=== PATIENT | male | born 1965 | race Caucasian/White ===

== ENCOUNTER 2022-10-08 16:08 | Emergency (ER) | payer SELFPAY ==
[~2022-10-08] VITALS: Ht 180.3 cm; Wt 82.6 kg
[2022-10-08 16:15] VITALS: BP 145/94
--- NOTE | 2022-10-08 16:24 | NUR ---
BLOOD GLUCOSE 196
--- NOTE | 2022-10-08 17:55 | NUR ---
Patient discharged with v/s stable. Written and verbal after care instructions given and explained. Patient verbalized understanding. Ambulatory with steady gait. All questions addressed prior to discharge. Advised to follow up with PMD.
== END 2022-10-08 17:55 ==
LOC: MED 16:08
DX: F10.129 Alcohol abuse with intoxication, unspecified (principal); Y90.9 Presence of alcohol in blood, level not specified
CPT/HCPCS: 82948; 99283